=== PATIENT | female | born 1955 | race Native Hawaiian/Other Pacific Islander ===

== ENCOUNTER 2016-10-13 08:26 | Outpatient (CLI) | payer BC | END 2016-10-13 22:56 | disposition home or self-care (01) | LOC: MAMMO 08:26 | DX: Z12.31 Encounter for screening mammogram for malignant neoplasm of breast (principal) | CPT/HCPCS: G0202-TC ==

== ENCOUNTER 2019-03-07 10:39 | Outpatient (CLI) | payer OTHER | END 2019-03-07 23:02 | disposition home or self-care (01) | LOC: MAMMO 10:39 | DX: Z12.31 Encounter for screening mammogram for malignant neoplasm of breast (principal); N64.59 Other signs and symptoms in breast ==

== ENCOUNTER 2022-01-26 09:05 | Outpatient (CLI) | payer OTHER | END 2022-01-26 18:55 | disposition home or self-care (01) | LOC: RESP 09:05 | PROVIDERS: ATTEND Internal Medicine | DX: R07.89 Other chest pain (principal); R42 Dizziness and giddiness; R00.2 Palpitations; R06.02 Shortness of breath | CPT/HCPCS: 93225 ==